=== PATIENT | male | born 1945 | race Caucasian/White ===

== ENCOUNTER 2017-09-12 01:11 | Inpatient (IN) | payer MEDICARE, MEDICAID ==
[2017-09-12 03:35] LABS: #Eosinphils 0.1 thou/uL (0.0-0.7); #Lymphocytes 0.9 thou/uL (1.20-3.40); #Monocytes 0.8 thou/uL (0.11-0.59); #Neutrophils 5.8 thou/uL (1.40-6.50); %Basophils 0.3 % (0.0-1.0); %Eosinophils 1.3 % (0.0-10.0); %Lymphocytes 11.6 % (21.0-51.0); %Monocytes 11.1 % (0.0-10.0); Hematocrit 33.8 % (42.0-52.0); Mean Platelet Volume 7.5 fL (7.4-10.4); Red Blood Cell (RBC) Count 3.65 mill/uL (4.70-6.10); White Blood Cell (WBC) Count 7.6 thou/uL (4.8-10.8)
[2017-09-12 03:57] LABS: ALT (SGPT) 23 U/L (8-55); AST (SGOT) 19 U/L (5-34); Alkaline Phosphatase 67 U/L (40-150); Anion Gap 10 mmol/L (10-20); BUN (Urea Nitrogen) 17 mg/dL (8.4-25.7); Calc. Creatinine Clearance 0 mL/min (70-130); Calcium 8.3 mg/dL (7.8-10.44); Carbon Dioxide 22 mmol/L (23-31); Chloride 109 mmol/L (98-107); Estimated GFR-MDRD Greater than 90; Globulin 3.3 g/dL (2.4-3.5); Protein, Total 5.9 g/dL (5.8-8.1)
[2017-09-12] MEDS ORDERED: Lactated Ringer's 1,000 ML IV SCH (04:40)
[2017-09-12] MEDS ORDERED: Ondansetron ODT 4 MG TAB SL PRN (04:40)
[2017-09-12] MEDS ORDERED: Acetaminophen 325 MG TAB PO PRN (04:40)
[2017-09-12] MEDS ORDERED: Ondansetron HCl/PF 4 MG/2 ML Vial IVP PRN ×2 (04:40→11:03)
[2017-09-12 04:47] VITALS: BMI 21.7
--- NOTE | 2017-09-12 06:38 | PDOC.EVN ---
Event Note - Event Note Event Note: [id number] H&P dictated 1. Hematuria 2. BPH 3. GERD 4. H/O MRDD Plan:see orders
[2017-09-12] MEDS ORDERED: Iothalamate Meglumine 60% 50 ML VIAL FS ONE (07:03)
[2017-09-12] MEDS ORDERED: Fentanyl 100 MCG/2 ML VIAL ONE ×2 (07:50)
[2017-09-12] MEDS ORDERED: Levofloxacin 500 mg/D5W 100 ml Premix Bag ONE (07:54)
[2017-09-12] MEDS ORDERED: Midazolam HCl 2 mg/2 ml Vial ONE (08:02)
--- NOTE | 2017-09-12 08:41 | HP ---
DATE OF ADMISSION: 09/12/2017 CHIEF COMPLAINT: Blood in the urine. HISTORY OF PRESENT ILLNESS: Patient is 72 years old female with past medical history of MRDD, BPH, G ERD, vitamin D deficiency, cataracts, now brought to the ER because of blood in the urine. Patient l [place] in a shelter. Patient is a poor historian and is not able to give much history. Patient kep t saying yes, no, no for everything. According to the nurse, the patient lives in a shelter and t he patient started having blood in the urine for the past 2-3 days, so patient was brought to the ER. Denies any fever, denies any chills, denies any cough, denies any sputum production. PAST MEDICAL HISTORY: As per HPI. PAST SURGICAL HISTORY: Unavailable. Nurse at shelter did not send any records. ALLERGIES: No known drug allergies. MEDICATIONS: Reviewed. FAMILY HISTORY: Unavailable as there are no family members. REVIEW OF SYSTEMS: None available from the patient due to the patient is a poor historian. PHYSICAL EXAMINATION: VITAL SIGNS: Blood pressure 126/79, pulse ox 95%, heart rate 111, temperature 98.2. GENERAL: This patient is sleeping, but arousable, not oriented. NECK: Supple, no JVD. HEENT: Anterior naris patent. Oral cavity, poor dentition. CARDIOVASCULAR SYSTEM: S1, S2 present, tachy. No murmurs, no rubs, no gallops. RESPIRATORY SYSTEM: No wheezing, no rhonchi. Breath sounds present bilaterally. GASTROINTESTINAL: Abdomen is soft, nontender, no guarding, no organomegaly. MUSCULOSKELETAL: No edema. CRANIAL NERVE SYSTEM: Awake, follows some commands, but not oriented. PSYCHIATRIC: Mood calm at this time. LABORATORY DATA: At the time of H&P performed, white count 7.6, hemoglobin 10.9, platelet count is 1 46. The sodium showed 137, potassium 3.9, chloride 109, CO2 of 22, BUN 17, creatinine 0.78. UA pend ing. ASSESSMENT AND PLAN: The patient is a 72-year-old male: 1. Hematuria. Plan is to check a urinalysis at this time. Plan to consult Urology to evaluate the patient and we will monitor the patient closely. Plan to check renal ultrasound also. 2. History of gastroesophageal reflux disease. Continue proton pump inhibitor. 3. History of benign prostatic hypertrophy. Continue home medications. 4. History of mentally retarded/developmentally disabled, stable at this time. Continue ann joseph was discussed in detail with the patient and the nurse also.
--- NOTE | 2017-09-12 08:56 | RAD ---
PORTABLE CHEST: HISTORY: Mental status change. The patient is slightly rotated. The lungs are clear. No evidence of infiltrate or vascular congest ion. Heart and mediastinum appear unremarkable. Apical pleural thickening is noted. Nodular densit y overlying the left mid lung is indeterminate. This may represent a calcified granuloma or a vascul ar marking. Recommend followup PA and lateral views of chest for evaluation. IMPRESSION: Suboptimal exam due to rotated position. No acute infiltrate or vascular congestion. Indeterminate nodular density in the left mid lung. Recommend followup PA and lateral views of the chest electivel y. CODE T POS: MICHELLE
[2017-09-12] MEDS ORDERED: Phenylephrine 10 MG/NS 250 ML 250 ML ONE (10:12)
[2017-09-12 10:32] LABS: Hematocrit 29.3 % (42.0-52.0)
[2017-09-12] MEDS ORDERED: Promethazine HCl 25 MG/ML VIAL SLOW IVP PRN (11:03)
[2017-09-12] MEDS ORDERED: Promethazine HCl 25 MG/ML VIAL IM PRN (11:03)
[2017-09-12] MEDS ORDERED: Mag-Al 1200 mg/1200 mg/30 ML UDCUP PO PRN (11:08)
[2017-09-12] MEDS ORDERED: hydrALAZINE 20 MG/ML VIAL SLOW IVP PRN ×2 (11:08)
[2017-09-12] MEDS ORDERED: Bisacodyl 10 MG SUPP PR PRN (11:08)
[2017-09-12] MEDS ORDERED: Betamethasone 0.1% Cream 15 GM TUBE TOP PRN (11:13)
[2017-09-12 11:46] LABS: Hematocrit 33.7 % (42.0-52.0); Mean Platelet Volume 7.3 fL (7.4-10.4); Red Blood Cell (RBC) Count 3.59 mill/uL (4.70-6.10); White Blood Cell (WBC) Count 4.3 thou/uL (4.8-10.8)
[2017-09-12 11:59] LABS: Anion Gap 9 mmol/L (10-20); BUN (Urea Nitrogen) 14 mg/dL (8.4-25.7); Calc. Creatinine Clearance 78 mL/min (70-130); Calcium 8.1 mg/dL (7.8-10.44); Carbon Dioxide 23 mmol/L (23-31); Chloride 108 mmol/L (98-107); Estimated GFR-MDRD Greater than 90
[2017-09-12] MEDS ORDERED: COLLOIDAL OATMEAL TOP PRN (12:15)
[2017-09-12] MEDS ORDERED: MENTHOL TOP PRN (12:15)
--- NOTE | 2017-09-12 12:51 | RAD ---
RETROGRADE PYELOGRMA: Five fluoroscopic images from the OR presented. HISTORY: Intraoperative imaging during left ureteral stent placement. FINDINGS/IMPRESSION: These images show partial opacification of left collecting structures with mild dilatation of visuali zed ureter and upper collecting structures. Wire and catheter placed into the upper collecting struc tures. The final images demonstrate placement of a left ureteral stent. POS: MICHELLE
[2017-09-12] MEDS: predniSONE 5 MG TAB PO SCH (12:56)
[2017-09-12] MEDS: Finasteride 5 MG TAB PO SCH (12:56)
[2017-09-12] MEDS: Tamsulosin HCl 0.4 MG CAP PO SCH (12:56)
[2017-09-12] MEDS: Sodium Chloride 0.9% 1,000 ML IV SCH ×2 (12:57→18:12)
--- NOTE | 2017-09-12 13:03 | PDOC.EVN ---
Event Note - Event Note Event Note: Chart reviewed. Pt seen Discussed with pt's brother. Pt is DNR. Pt's brother agreeable to physical and chemical restraints PRN.
[2017-09-12] MEDS ORDERED: Lidocaine 1% PF 5 ML VIAL ONE (13:50)
[2017-09-12] MEDS ORDERED: PHENYLEPHRINE-NS 100 MCG/ML 10 ML SYRINGE ONE (13:50)
[2017-09-12] MEDS ORDERED: Ondansetron HCl/PF 4 MG/2 ML Vial ONE (13:50)
[2017-09-12] MEDS ORDERED: Propofol 200 MG/20 ML VIAL ONE (13:50)
[2017-09-12] MEDS ORDERED: ePHEDrine/0.9% NaCl/PF SYRINGE 50 mg/10 ml ONE (13:50)
[2017-09-12] MEDS ORDERED: Glycopyrrolate 0.2 MG/ML 5 ML SYRINGE ONE (13:50)
--- NOTE | 2017-09-12 15:42 | OP ---
DATE OF PROCEDURE: 09/12/2017 PREOPERATIVE DIAGNOSES: 1. A 72-year-old male with history of gross hematuria. 2. Severe left hydroureteronephrosis with megaureter. 3. Left exophytic solid appearing 2.5 cm lower pole renal mass. 4. Possible left upper to lower pole hyperattenuating mass versus stone versus debris. POSTOPERATIVE DIAGNOSES: 1. A 72-year-old male with history of gross hematuria. 2. Severe left hydroureteronephrosis with megaureter. 3. Left exophytic solid appearing 2.5 cm lower pole renal mass. 4. Possible left upper to lower pole hyper attenuating mass versus stone versus debris. PROCEDURES: Cystoscopy, left retrograde, 20 [place]ican three-way Waters catheter, 30 mL to CBI, left ureteroscopy, pyeloscopy proximal ureteral biopsy, 6 x 30 double-J ureteral stent placement with distal tail in situ, meatal calibration dilatation with Russ sounds dilated from 22-30 Costa Rican. SURGEON: Tena Bernal D.O. ANESTHESIA: General. COMPLICATIONS: None apparent. DISPOSITION: To the recovery room in stable condition. SPECIMENS: Multiple left ureteral renal clot, left prox ureteral biopsy. EBL: Less than 50 mL. IV FLUIDS: 1600. INTRAOPERATIVE FINDINGS: 1. Nonobstructing bulbar stricture 16-18 Costa Rican caliber. 2. Mild BPH component. 3. Diffuse cellulae, diffuse diverticular formation, bilateral Hutch diverticulum, no evidence of gross bladder mass or stone. 4. Severe left hydroureteronephrosis/megaureter with tortuosity. 5. Multiple left ureteral clots, questionable left proximal L3 ureteral mass versus inflammatory changes. 6. Left pyeloscopy demonstrates no mid to upper pole renal lesion, left lower pole was difficult to visualize due to clot debris 7 VAN under anesthesia grossly unremarkable with no nodularity INDICATIONS FOR THE PROCEDURE AND HISTORY: Mr. House is a 72-year-old male who was transferred from [facility] as he presented twice in one evening due to gross hematuria with decreased hemoglobin from 12- to 10. He was initially diagnosed with hemorrhagic cystitis and discharged with Keflex and provided Rocephin. He presented back due to persistent gross hematuria and CT of the abdomen and pelvis without contrast was obtained at [facility] demonstrating severe left hydroureteronephrosis, with megaureter extending down to the level of the UVJ, the bladder itself was difficult to study due to orthopedic hardware due to streak artifact. There may be some debris or hypoattenuating mass versus stone in the upper to mid pole, there is a heterogenous left lateral lower pole 2.5 x 2 cm, 50 Hounsfield unit inner lesion with multiple enlarged lymph nodes adjacent to the dilated ureter. The bladder demonstrated circumferential bladder thickening. He does not appear to be in significant retention. Given his presentation, he was taken to the operating room for diagnostic evaluation. Due to his mental capacity as he is mentally impaired, born with mental retardation since , I did speak with his brother who is the POA regarding indications for diagnostic evaluation. Risks and complications and indications for the procedure were reviewed with the family and they desired to proceed. DESCRIPTION OF THE PROCEDURE: After an informed consent is signed, the patient is taken to the operating room, placed in a dorsal lithotomy position with the genital area prepped and draped in the usual surgical sterile fashion. A digital rectal exam was performed under general anesthesia demonstrating prostate approximately 20-30 grams with no discrete nodularity. The broad- spectrum antibiotics were provided. Bilateral KIRK hose and SCDs were placed. A 21-Costa Rican cystoscope was utilized for cystoscopy which demonstrated a nonobstructing wide caliber bulbar stricture, 16-18 [place]ican caliber. The prostatic urethra itself demonstrated mild BPH component with no significant outlet obstruction. Bladder was entered. Visualization was very poor as there was significant amount of hematuria component. There were not significant clots per se, but visualization was very poor due to oozing from the left ureteral orifice which we were eventually able to identify. As I was unable to visualize the bladder clearly, I did transition to a resectoscope 26 gyrus. Using a visual obturator, this was passed. His meatus need to be dilated from 22-30 Costa Rican and subsequently the 26-Costa Rican resectoscope was passed without difficulty. This was able to be passed through the urethral stricture without any issues. Upon entering the resectoscope, we transitioned to the suction and gyrus loop. With the suction in place, we were able to visualize the bladder more clearly. There were no suspicious lesions for malignancy within the bladder. He does have diffuse cellulae diverticular formation and bilateral Hutch diverticulum. I did not see any obvious bladder lesions concerning for malignancy. However, the cystoscopy is somewhat suboptimal given that he is actively bleeding from the left UO. The bilateral UOs are normal in caliber. There is bilateral adjacent Hutch diverticulum. As we identified the source of bleeding from the left collecting system, the gyrus resectoscope was then subsequently removed. We passed a 21-Costa Rican cystoscope and an open-ended catheter was passed into the left ureter and a retrograde pyelogram was performed. There was no obvious filling defect in the left distal ureter; however, he had megaureter. Given that he has significant tortuosity, opacification of the proximal ureter was very challenging. In little increments , we were able to negotiate a 0.35 angled Glidewire and able to access the left upper pole collecting system confirmed on retrograde pyelography. With the wire in situ, I did pass the rigid ureteroscope, there is multiple clot debris in the distal ureter which was removed and I do not see any obvious left distal ureteral lesion. At the level of the L3 ureter, I was unable to pass the rigid ureteroscope due to significant redundant tortuous ureter, due to redundant mucosa in J hooking effect of the ureter. There were intermittent areas of clots along the course of the ureter. As such, the ureteroscopy was somewhat suboptimal, but I did not see any obvious distal ureteral mass. At this time, flexible ureteroscopy was performed. A 10 [place]ican dual-lumen access sheath was passed over the working safety wire and a second safety wire, a 0.35 Super Stiff was passed in the left upper pole. As he has megaureter, I was easily able to pass a 13/15F 46 cm navigator without any issues to the level of the renal pelvis. Upon passing the navigator to the level of the renal pelvis UPJ, moderate amount of old venous blood was evacuated from the renal pelvis. A flexible ureteroscope was then advanced. We had to irrigate his calyceal collecting system quite a bit to visualize. I was able to evaluate upper and midpole collecting system with no obvious caliceal mass. The left lower pole was somewhat difficult to visualize as there was an adherent clot which we had difficulty evacuating as biopsy forceps nor 0 tip nitinol basket could grasp it entirely. We then surveyed the proximal ureter, there was further clots along the course of the ureter; therefore, hindering visual assessment. I did biopsy the proximal and mid ureter at the level of the L3 as there appeared to be some inflammatory changes here. Using front loading the biopsy samples were obtained. Again, the ureteroscopy was very challenging as it was quite redundant ureteral mucosa, along with intermittent areas of clot adherence, which was difficult to evacuate it entirely. As I was able to obtain some specimen, a 6 x 30 double-J ureteral stent was passed without difficulty and proper placement. At this time, we then reinspected the bladder which demonstrated no evidence of active bleeding component from the bladder itself. A 20 Costa Rican 30 mL catheter was passed without any issues and attached to CBI on low rate with pink to transparent red output. He tolerated the procedure well and is transported to the recovery room in stable condition. We will follow along regarding pathology and monitor degree of hematuria. My plan is to proceed with restaging CT hematuria protocol to further delineate and await pathology. Due to his mental status, he will require a 24-hour sitter. BONITA
--- NOTE | 2017-09-12 16:03 | CON ---
DATE OF CONSULTATION: 09/12/2017 REASON FOR CONSULT: Gross hematuria, left hydronephrosis. HISTORY OF PRESENT ILLNESS: Mr. House is a 72-year-old male with history of developmental delay since , lives in a nursing home, transfer from [facility] Room for higher level of care. He presented initially earlier Wednesday with presumed diagnosis of hemorrhagic cystitis, treated with Rocephin, outpatient Keflex. He presented due to recurrent hematuria. His hemoglobin initially was 12, subsequently 10. Urologic consultation was obtained over the phone and I informed the patient be transferred due to decreased hemoglobin and CT demonstrating multiple abnormalities: demonstrating severe left hydronephrosis to the level of the UVJ in which the bladder mass cannot be ruled out. There is also an incidental complex renal mass concerning for renal cell carcinoma, and hyperattenuating debris in the dependent portion of the left upper and lower pole renal collecting system. The right kidney is grossly unremarkable. He voids in his diaper, there is no significant distention of the bladder on CT scan. His labs repeated and currently stable and his blood pressure is stable. Urinalysis culture obtained from [facility], culture pending. Renal function stable. History is obtained per chart as the patient cannot provide a subjective history. Sitter is at bedside due to his mental capacity and combativeness. If you approached the patient he is physically combative and attempts to strike nursing staff. PAST MEDICAL HISTORY: GERD, vitamin D deficiency, cataracts, BPH, developmental delay since . PAST SURGICAL HISTORY: 1. Open cholecystectomy. 2. Bilateral hip surgery. PSYCHIATRIC HISTORY: Unknown. SOCIAL HISTORY: Upon discussing with his POA, older brother, Alberto House( phone number [phone]), no smoking history. ALLERGIES: No known drug allergies. HOME MEDICATIONS: Include calcium, finasteride, loratadine, vitamin D, potassium, tamsulosin, prednisone, Kenalog, and trazodone. PHYSICAL EXAMINATION: VITAL SIGNS: Stable at 99.4, 105, 22, 96, 118/71. GENERAL: Patient is currently sleeping comfortably; however, when arouse, he is grossly physically and verbally abusive, requiring 2 nurses assist to examine his abdomen; however, physical exam is limited as he will not allow me to do extensive physical exam except briefly visualize his abdomen and genital area. ABDOMEN: Appears to be nondistended. There is an open cholecystectomy in the upper quadrant. There is no gross suprapubic tenderness. GENITOURINARY EXAM: Uncircumcised, diaper is saturated with hematuria. No significant clots are appreciated per se. Testes are descended with no evidence of intratesticular mass, unable to perform VAN due to his mental status. EXTREMITIES: There is no gross cyanosis, clubbing, or edema. PERTINENT IMAGING AND LABORATORY DATA: White count 7, hemoglobin 10.9. Creatinine is 0.78. Platelet is 146. Sodium 137, potassium 3.9. Urinalysis from [facility] reviewed demonstrating red cloudy urine, packed RBCs, greater than 50 wbcs, occasional bacteria, no epithelial, negative nitrites. Culture pending. CT of the abdomen and pelvis stone protocol, which I reviewed myself through [facility]. 09/11/2017, CT demonstrates right kidney is unremarkable, 17 mm right renal cyst. Left kidney demonstrates diffuse renal cortical atrophy, there is marked hydronephrosis with significant megaureter extending to the level of the UVJ. There is a streak artifact from his hip replacement. Therefore, a bladder assessment is suboptimal. The left upper and lower pole collecting system demonstrates hyperattenuating mass-like debris, with layering effect measuring approximately 2.2 cm, possibility includes stone debris, a urothelial mass. There is heterogenous exophytic left lateral renal mass measuring 2.5 x 2.0 cm, 50 Hounsfield unit on noncontrast. There are multiple enlarged lymph nodes adjacent to the dilated left ureter along the retroperitoneum in the pelvis, circumferential bladder wall thickening is noted. Mild BPH component noticed. Bilateral hip hardware is noted. IMPRESSION/PLAN: Mr. House is a 72-year-old male with mental developmental delay since , who lives in a nursing home with past medical history of benign prostatic hypertrophy, gastroesophageal reflux disease, presents with urologic issues of. 1. Gross hematuria for the last [address] demonstrating abnormalities as above with severe left hydroureteronephrosis and megaureter. 2. Left complex lower pole renal mass concerning for renal cell carcinoma. 3. CT demonstrates changes concerning for possible urothelial carcinoma, possible transitional cell carcinoma of the bladder. I did contact his brother, who is Alberto Lacy, his power of compliance attorney, older brother. Informed family regarding his clinical status and picture and indications for diagnostic cystoscopy, transurethral resection of bladder tumor , retrograde stent placement if possible. Verbal consent obtained. He is typed and crossed for 4 units, n.p.o. for OR. Christopher nutrition partner to the OR. BONITA
[2017-09-12] MEDS: traZODone HCl 50 MG TAB PO SCH (21:25)
[2017-09-12] MEDS: Docusate 100 MG CAP PO SCH (21:26)
[2017-09-12] MEDS: Calcium Carbonate 600 MG TAB PO SCH (21:26)
[2017-09-12] MEDS: [UNRECOGNIZED DRUG - SUPPLY] FS SCH (21:27)
[2017-09-12] MEDS: TROSPIUM 20 MG TABLET PO SCH (22:29)
[2017-09-12] MEDS: Latanoprost 0.005% Ophth Soln 2.5 ml Bottle EA EYE SCH (22:30)
[2017-09-12] MEDS: Chlorhexidine Gluconate 15 ML UDCUP SSP SCH (22:30)
[2017-09-13 05:27] LABS: #Eosinphils 0.1 thou/uL (0.0-0.7); #Lymphocytes 0.6 thou/uL (1.20-3.40); #Monocytes 0.4 thou/uL (0.11-0.59); #Neutrophils 2.4 thou/uL (1.40-6.50); %Basophils 0.5 % (0.0-1.0); %Eosinophils 3.7 % (0.0-10.0); %Lymphocytes 17.7 % (21.0-51.0); %Monocytes 10.3 % (0.0-10.0); Mean Platelet Volume 7.6 fL (7.4-10.4); White Blood Cell (WBC) Count 3.5 thou/uL (4.8-10.8)
[2017-09-13 05:43] LABS: Anion Gap 7 mmol/L (10-20); BUN (Urea Nitrogen) 10 mg/dL (8.4-25.7); Calc. Creatinine Clearance 81 mL/min (70-130); Calcium 7.7 mg/dL (7.8-10.44); Carbon Dioxide 23 mmol/L (23-31); Chloride 110 mmol/L (98-107); Estimated GFR-MDRD Greater than 90
[2017-09-13] MEDS: Sodium Chloride 0.9% 1,000 ML IV SCH ×3 (06:21→23:05)
--- NOTE | 2017-09-13 07:59 | PRG ---
DATE OF SERVICE: 09/13/2017 SUBJECTIVE: The patient is resting comfortably. OBJECTIVE: VITAL SIGNS: Stable at 98.4, 107, 16, 92, blood pressure variable from 118 to 96 systolic, diastolic 71 to 59. ABDOMEN: Soft, nontender, nondistended. CBI is going at a minimal rate with clear urine output. PERTINENT LABORATORY DATA: White count is 3.5, hemoglobin 9.1, platelet 117. BUN 10, creatinine 0.72. IMAGING: Repeat CT final report is pending thus far. IMPRESSION AND PLAN: Mr. House is a 72-year-old male who presented with severe left hydroureteronephrosis, left megaureter, left exophytic renal mass, gross hematuria. He is postop day #1 status post left retrograde stent, ureteroscopy , pyeloscopy, left ureteral biopsy. His pathology is pending, will review CT restaging with radiologist. We will continue current management for now. We will need to monitor his H&H, platelets slowly decreasing, will need to be monitored with daily CBCs. Continue bedside sitter due to his mental capacity. Cardiology consultation for clearance for likely nephrectomy pending. As his urine output is relatively clear on low rate CBI, we'll monitor urine with CBI held. [facility]
[2017-09-13] MEDS: predniSONE 5 MG TAB PO SCH (09:14)
[2017-09-13] MEDS: Tamsulosin HCl 0.4 MG CAP PO SCH (09:14)
[2017-09-13] MEDS: Calcium Carbonate 600 MG TAB PO SCH ×2 (09:14→21:39)
[2017-09-13] MEDS: Docusate 100 MG CAP PO SCH ×2 (09:14→21:40)
[2017-09-13] MEDS: Potassium Chloride 10 MEQ TAB PO SCH (09:14)
[2017-09-13] MEDS: Loratadine 10 MG TAB PO SCH (09:14)
[2017-09-13] MEDS: Finasteride 5 MG TAB PO SCH (09:14)
--- NOTE | 2017-09-13 09:29 | CT ---
PRELIMINARY REPORT/[facility]/EMERGENCY AFTER HOURS PROCEDURE: EXAM: CT Abdomen and Pelvis Without and With Intravenous Contrast CLINICAL HISTORY: 72 years old, male; Condition or disease; Other: Hematuria; Patient HX: Left hydro, indeterminate lp renal mass, hematuria. *pt is poor historian; Additional info: this is a renal mass/hematuria dariela col TECHNIQUE: Axial computed tomography images of the abdomen and pelvis without and with intravenous contrast. Coronal and sagittal reformatted images were created and reviewed. CONTRAST: 95 mL of isovue 370 administered intravenously. COMPARISON: No relevant prior studies available. FINDINGS: Lower thorax: Bibasilar dependent atelectasis. Minimal right and trace left pleural effusions. Small pericardial effusion. ABDOMEN: Liver: Small low attenuation lesion in hepatic segment 3. Otherwise unremarkable. Gallbladder and bile ducts: Cholecystectomy. Pancreas: Unremarkable. Spleen: Normal. Adrenals: Normal. Kidneys and ureters: 2 cm low density lesion in the upper pole of the right kidney likely representin g a cyst with pseudo-enhancement. 2.3 cm exophytic lesion at the lower pole of the left kidney pre/po st/delayed density measurements of 45/75/65 HU Left ureteral stent which appears to terminate within an interpolar calyx with cortical scarring/calyceal diverticulum and within the urinary bladder dista lly. No renal or ureteral stone appreciated. Thickened left ureter with urothelial enhancement about the left renal collecting system, mild caliectasis, and periureteral and perinephric fat stranding. B ubble of gas in the proximal left ureter. Slightly delayed nephrogram and excretion on the left. Hete rogeneous dense material apparently within left upper pole calyces precontrast with irregular filling defect surrounded by dependent contrast on the delayed phase. Stomach and bowel: Unremarkable. No obstruction. Appendix: No findings to suggest acute appendicitis. PELVIS: Bladder: Decompressed by a Waters catheter. Stranding around the urinary bladder margins. Reproductive: Unremarkable. ABDOMEN and PELVIS: Intraperitoneal space: No free air. No significant fluid collection. Bones/joints: Orthopedic fixation of the right hip and total left arthroplasty with associated streak artifact. Soft tissues: Unremarkable. Vasculature: Unremarkable. Lymph nodes: 1 cm upper left periaortic lymph node. IMPRESSION: 1. Exophytic left renal lesion with density measurements suggesting enhancement and a solid lesion. D ensity within left upper pole calyces precontrast with excretory phase filling defect may represent b lood products or proteinaceous debris. 2. Left ureteral stent. Decompressed urinary bladder with perivesicular fat stranding. Diffuse thicke carla of the left ureter with urothelial thickening and enhancement about the left renal collecting sy stem and associated fat stranding suggestive of infection. Mild left hydronephrosis. Some gas within the proximal left ureter may be related to that in the bladder. Thank you for allowing us to participate in the care of your patient. Dictated and Authenticated by: Kush Eric MD 09/13/2017 6:51 AM Central Time ([place] & [place]) FINAL REPORT EMERGENCY AFTER HOURS CT ABDOMEN AND PELVIS WITH AND WITHOUT IV CONTRAST: Date: 09/13/17 Time: 0534 hours HISTORY: Hematuria. Hydronephrosis. Flank pain. FINDINGS: No comparison. The findings agree with the preliminary report by Mary. Left ureteral stent is in plac e with the proximal pigtail protruding into a willow at the lateral aspect of superior pole of left ki dney. The exophytic hyperdense lesion at the posterior aspect of the left kidney shows objective enha ncement, although artifact could result in some of the Hounsfield elevation measurements. MRI of the kidneys could be used for better characterization of the lesion if needed. POS: MICHELLE
--- NOTE | 2017-09-13 09:52 | CON ---
DATE OF CONSULTATION: 09/13/2017 HISTORY: Fabien House is a 72-year-old white male with mental retardation who lives in a custodial and was admitted with hematuria. He is unable to give any history. He does say at times that he would have chest pain lasting approximately 1 hour, but he is unable to give me any other specifics. He does have a history of GERD and he is on a proton pump inhibitor. He did undergo cystoscopy and was found to have severe left hydroureteronephrosis with megaureter and a lower pole renal mass. There is a concern that he may need to undergo nephrectomy. PAST MEDICAL HISTORY: Mental retardation, developmental delay, BPH, GERD, cataracts and vitamin D deficiency. MEDICATIONS: Calcium carbonate 600 b.i.d., vitamin D3 1000 units daily, Proscar 5 mg daily, Claritin 10 mg daily, KCl 10 mEq daily, prednisone 10 mg daily, Flomax 0.4 daily, and trazodone 50 at bedtime. ALLERGIES: None. OPERATIONS: Unknown. SOCIAL HISTORY: Unobtainable. FAMILY HISTORY: Unobtainable. REVIEW OF SYSTEMS: Unobtainable. PHYSICAL EXAMINATION: VITAL SIGNS: Blood pressure 108/66, pulse 92. HEENT: PERRL. NECK: Supple. CHEST: Clear. CARDIAC: S1 and S2 are normal, without any S3, S4 or murmurs. ABDOMEN: Normal bowel sounds, without tenderness or organomegaly. EXTREMITIES: Revealed no clubbing, cyanosis or edema. NEUROLOGIC: Patient follows commands, but is not oriented. He moves all extremities. SKIN: Warm and dry. IMAGING AND LABORATORY DATA: EKG reveals sinus tachycardia with rate of 114 per minute, right bundle branch block, possible old inferior myocardial infarction. Hemoglobin 9.1 and hematocrit 28.0. White count 3,500, platelets 178,000, sodium 137, potassium 3.4, chloride 110, carbon dioxide 23, BUN 10, creatinine 0.72. IMPRESSION: 1. Hematuria with finding of left hydroureteronephrosis and left kidney mass. 2. Mental retardation, developmental delay. 3. Gastroesophageal reflux disease. 4. Benign prostatic hypertrophy. PLAN: This certainly represents a difficult situation in terms of trying to historically understand if he has symptoms of cardiac disease. However, with ongoing bleeding, he is not a candidate for any type of cardiac intervention and measures needed to be taken to eliminate his blood loss. I feel that the risk of proceeding with surgery if required to stop his bleeding would be much less than proceeding with any type of cardiac evaluation, especially with ongoing bleeding. Echocardiogram will be performed to aide in management. However, if nephrectomy as needed, then I feel this is going to be our best course going forward. BONITA
[2017-09-13] MEDS: TROSPIUM 20 MG TABLET PO SCH ×2 (13:37→21:40)
[2017-09-13] MEDS: Chlorhexidine Gluconate 15 ML UDCUP SSP SCH ×2 (13:38→23:05)
--- NOTE | 2017-09-13 14:34 | PDOC.PN ---
- Subjective Encounter Start Date: 09/13/17 Encounter Start Time: 08:20 Pt seen for followup re: hematuria. Pt mumbling, unable to give history. Could not complete ROS. - Objective Resuscitation Status: Resuscitation Status DNR:Do Not Resuscitate Vital Signs & Weight: Vital Signs (12 hours) Temp Pulse Resp BP Pulse Ox 09/13/17 11:55 98.2 F 89 19 100/65 96 09/13/17 08:00 97.8 F 92 16 09/13/17 07:40 97.8 F 92 16 108/66 96 09/13/17 04:50 98.4 F 107 H 16 96/59 L 92 L Weight Weight 134 lb 11.2 oz I&O: 09/12/17 09/13/17 09/14/17 06:59 06:59 06:59 Intake Total 125 1200 Output Total 1050 Balance 125 150 Result Diagrams: 09/13/17 04:39 09/13/17 04:39 Additional Labs: Accuchecks 09/13/17 09/13/17 09/12/17 11:39 06:07 21:12 POC Glucose 114 H 88 140 H Phys Exam - Physical Examination Constitutional: NAD HEENT: moist MMs Respiratory: clear to auscultation bilateral Cardiovascular: RRR Gastrointestinal: soft Neurological: moves all 4 limbs Psychiatric: normal affect Skin: no rash Dx/Plan (1) Hematuria Code(s): R31.9 - HEMATURIA, UNSPECIFIED Status: Acute (2) Renal mass Code(s): N28.89 - OTHER SPECIFIED DISORDERS OF KIDNEY AND URETER Status: Acute (3) Hypokalemia Code(s): E87.6 - HYPOKALEMIA Status: Acute (4) GERD (gastroesophageal reflux disease) Code(s): K21.9 - GASTRO-ESOPHAGEAL REFLUX DISEASE WITHOUT ESOPHAGITIS Status: Chronic (5) BPH (benign prostatic hyperplasia) Code(s): N40.0 - BENIGN PROSTATIC HYPERPLASIA WITHOUT LOWER URINRY TRACT SYMP Status: Chronic - Plan continue antibiotics, DVT proph w/SCDs * . Plan for surgery noted. Appreciate cardiology input. Haldol PRN. No anticoagulants. Replace potassium. Review of Systems - Medications/Allergies Allergies/Adverse Reactions: Allergies Allergy/AdvReac Type Severity Reaction Status Date / Time No Known Allergies Allergy Verified 09/12/17 05:26 Medications: Current Medications Acetaminophen (Tylenol) 650 mg PO Q4H PRN PRN Reason: Headache/Fever or Pain Stop: 09/15/17 16:35 Al Hydroxide/Mg Hydroxide (Maalox) 30 ml PO Q4H PRN PRN Reason: Indigestion Betamethasone Valerate (Valisone 0.1% Cream) 0 gm TOP DAILYPRN PRN PRN Reason: Itching Bisacodyl (Dulcolax) 10 mg [place] DAILYPRN PRN PRN Reason: Constipation Calcium Carbonate (Caltrate) 600 mg PO BID [facility] Last Admin: 09/13/17 09:14 Dose: 600 mg Chlorhexidine Gluconate (Chlorhexidine Gluconate) 15 ml SSP BID [facility] Last Admin: 09/13/17 13:38 Dose: Not Given Cholecalciferol (Vitamin D3) 1,000 units PO DAILY [facility] Last Admin: 09/13/17 09:14 Dose: 1,000 units Docusate Sodium (Colace) 100 mg PO BID [facility] Last Admin: 09/13/17 09:14 Dose: 100 mg Finasteride (Proscar) 5 mg PO DAILY [facility] Last Admin: 09/13/17 09:14 Dose: 5 mg Haloperidol Lactate (Haldol) 5 mg IM Q8H PRN PRN Reason: Agitation Hydralazine HCl (Apresoline) 20 mg SLOW IVP Q4H PRN PRN Reason: SBP greater than 160/100 Levofloxacin 500 mg/ Device 100 mls @ 100 mls/hr IVPB 0800 [facility] Last Admin: 09/13/17 09:12 Dose: 100 mls Sodium Chloride (Normal Saline 0.9%) 1,000 mls @ 100 mls/hr IV .Q10H [facility] Last Admin: 09/13/17 06:21 Dose: 1,000 mls Latanoprost (Xalatan 0.005% Ophth Soln) 1 drop EA EYE HS [facility] Last Admin: 09/12/17 22:30 Dose: 1 drop Loratadine (Claritin) 10 mg PO DAILY [facility] Last Admin: 09/13/17 09:14 Dose: 10 mg Mirabegron (Myrbetriq Er) 50 mg PO DAILY [facility] Last Admin: 09/13/17 09:14 Dose: 50 mg Ondansetron HCl (Zofran) 4 mg IVP Q6H PRN PRN Reason: Nausea/Vomiting Stop: 09/17/17 16:35 Eyelid Cleanser Comb No.7 [Ocusoft Lid Scrub Kit] 1 Pack 0 each FS HS [facility] Last Admin: 09/12/17 21:27 Dose: 1 each Menthol/Colloidal Oatmeal [Eucerin Calm Itch-Relief Treatment] 0 each TOP BIDPRN PRN PRN Reason: Itching Potassium Chloride (Klor-Con 10) 10 meq PO QAM-WM [facility] Last Admin: 09/13/17 09:14 Dose: 10 meq Prednisone (Prednisone) 10 mg PO DAILY [facility] Last Admin: 09/13/17 09:14 Dose: 10 mg Sodium Chloride (Flush - Normal Saline) 10 ml IVF Q12HR [facility] Last Admin: 09/13/17 09:44 Dose: Not Given Sodium Chloride (Flush - Normal Saline) 10 ml IVF PRN PRN PRN Reason: Saline Flush Tamsulosin HCl (Flomax) 0.4 mg PO DAILY [facility] Last Admin: 09/13/17 09:14 Dose: 0.4 mg Trazodone HCl (Desyrel) 50 mg PO HS [facility] Last Admin: 09/12/17 21:25 Dose: 50 mg Trospium (Trospium Chloride) 20 mg PO BID [facility] Last Admin: 09/13/17 13:37 Dose: Not Given
[2017-09-13] MEDS ORDERED: Potassium Chloride 20 MEQ TAB PO SCH (14:45)
[2017-09-13] MEDS: Latanoprost 0.005% Ophth Soln 2.5 ml Bottle EA EYE SCH (21:40)
[2017-09-13] MEDS: [UNRECOGNIZED DRUG - SUPPLY] FS SCH (21:40)
[2017-09-13] MEDS: traZODone HCl 50 MG TAB PO SCH (21:40)
[2017-09-14 05:35] LABS: Anion Gap 9 mmol/L (10-20); BUN (Urea Nitrogen) 6 mg/dL (8.4-25.7); Calc. Creatinine Clearance 87 mL/min (70-130); Calcium 7.7 mg/dL (7.8-10.44); Carbon Dioxide 19 mmol/L (23-31); Chloride 112 mmol/L (98-107); Estimated GFR-MDRD Greater than 90
[2017-09-14 05:38] LABS: #Eosinphils 0.2 thou/uL (0.0-0.7); #Lymphocytes 0.7 thou/uL (1.20-3.40); #Monocytes 0.4 thou/uL (0.11-0.59); #Neutrophils 3.7 thou/uL (1.40-6.50); %Basophils 0.2 % (0.0-1.0); %Eosinophils 3.9 % (0.0-10.0); %Lymphocytes 13.9 % (21.0-51.0); %Monocytes 7.6 % (0.0-10.0); Hematocrit 29.4 % (42.0-52.0); Red Blood Cell (RBC) Count 3.18 mill/uL (4.70-6.10); White Blood Cell (WBC) Count 4.9 thou/uL (4.8-10.8)
--- NOTE | 2017-09-14 08:30 | PRG ---
DATE OF SERVICE: 09/14/2017 SUBJECTIVE: Sitter at bedside, patient in no acute distress. Appears comfortable. PHYSICAL EXAMINATION: VITAL SIGNS: Stable, afebrile. I's and O's 2500 in, 1625 out, he is positive 500 mL. ABDOMEN: Soft, nontender, nondistended. : CBI has been held since yesterday, with no significant recurrence of gross hematuria, concentrat ed ranjit urine with some sediment noted. LABORATORY DATA: White count 4.9, hemoglobin stable at 9.3, platelet 111, previously 117, BUN 6, cre atinine 0.6. Restaging CT of the abdomen and pelvis with and without IV contrast dated 09/13/2017 demonstrate sign ificant improvement of left hydroureteronephrosis. Left exophytic 2.3 cm lower pole solid enhancing renal mass. Density in the left upper pole, contrast demonstrating possible blood products versus pr oteinaceous debris. Diffuse thickening of the left ureter with stranding suggestive of infection, gas in the left collect ing system as expected due to recent pyeloscopy. IMPRESSION AND PLAN: 1. A 72-year-old male with mental retardation, presented from [facility] with gross hematuria. 2. Severe left hydroureteronephrosis with radha ureter. 3. Diffuse trabeculation, diverticular formation of the bladder. 4. No significant outlet obstruction on cystoscopy except incidental mild benign prostatic hypertrop hy and nonobstructing bulbar stricture. 5. Ureteroscopy pyeloscopy demonstrating multiple ureteral renal blood clots, ureteral biopsy pendin g. 6. 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 The patient's gross hematuria has resolved with normal renal function. Pathology is pending as well as urine culture obtained from [facility]. We will continue to monitor the patient's stat us, I will recheck a UA, C&S. We will obtain cytology from catheter specimen as it was not obtained intraoperatively. Plan is to perform restaging ureteroscopy, pyeloscopy after convalescence from recent surgery as his hematuria has improved. Visualization was very poor due to significant clot debris in the left colle cting system as well as the ureter. The patient's family has been informed regarding possible ureter al TCC and incidental solid renal mass concerning for occult renal cell carcinoma. He will undergo f urther workup for final treatment options to be delineated. Continue Waters catheter for now. It is unclear why his significant trabeculation of the bladder with no significant outlet function. As his hematuria has resolved, pending final urine culture, we will remove Waters catheter likely before dis charge and check postvoid residual. Given his mental capacity, I would prefer patient to be discharg ed without a Waters catheter as there is a risk of traumatic Waters catheter removal. I appreciate Car diology and Hospitalist care.
[2017-09-14] MEDS: Potassium Chloride 10 MEQ TAB PO SCH (09:20)
[2017-09-14] MEDS: Docusate 100 MG CAP PO SCH ×2 (09:20→20:00)
[2017-09-14] MEDS: Tamsulosin HCl 0.4 MG CAP PO SCH (09:20)
[2017-09-14] MEDS: Calcium Carbonate 600 MG TAB PO SCH ×2 (09:20→20:00)
[2017-09-14] MEDS: Loratadine 10 MG TAB PO SCH (09:21)
[2017-09-14] MEDS: Finasteride 5 MG TAB PO SCH (09:21)
[2017-09-14] MEDS: predniSONE 5 MG TAB PO SCH (09:21)
[2017-09-14] MEDS: TROSPIUM 20 MG TABLET PO SCH (09:36)
[2017-09-14] MEDS: Chlorhexidine Gluconate 15 ML UDCUP SSP SCH ×2 (09:36→20:00)
[2017-09-14 10:00] LABS: Bilirubin Negative (Negative); Blood, Urine Large (Negative); Glucose, Urine (Dipstick) Negative (Negative); Ketone, Urine Trace mg/dL (Negative); Nitrite Negative (Negative); Protein, Urine (Dipstick) 100 mg/dL (Neg-Trace); Urobilinogen 0.2 mg/dL (0.2-1.0)
[2017-09-14 10:03] LABS: Bacteria/HPF None Seen HPF (None Seen); Hyaline Casts/LPF 7-10 HYALINE CAST LPF (0-3 Hyaline); RBC/HPF GREATER THAN 50-TNTC HPF (0-3); Squamous Epithelial 0-3 HPF (0-3)
--- NOTE | 2017-09-14 11:36 | CT ---
CT CHEST WITHOUT CONTRAST: HISTORY: Lung nodule on chest x-ray. COMPARISON: None. FINDINGS: There are bilateral clearing pleural effusions, mild to moderate in size. There is compressive atele ctasis in both lung bases. There is some opacity within the lingula, felt to represent atelectasis. Heart size is at the upper limits of normal. No pericardial effusion. Mild peripheral interstitial thickening. The aorta is nonaneurysmal. Heart size is unremarkable. No pericardial effusion. There is gas within the left intrahepatic biliary system. Old buckle fracture of the right anterior fourth and fifth ribs. There are areas of sclerosis of the right posterior fifth rib neck. There is an old buckle fracture of lateral right ninth rib. IMPRESSION: 1. No definite pulmonary nodule seen to correspond to the chest radiograph findings. There is, panda tiffani, atelectasis in the lingula in the left lower lobe. 2. Mild edema. 3. Small to moderate sized pleural effusions. 4. Compressive atelectasis of both lung bases. POS: MICHELLE
[2017-09-14] MEDS ORDERED: Furosemide 40 MG/4 ML VIAL SLOW IVP SCH (12:30)
--- NOTE | 2017-09-14 12:32 | PDOC.PN ---
- Subjective Encounter Start Date: 09/14/17 Encounter Start Time: 12:31 Pt seen for followup re: renal mass. Not verbalizing any complaints. Unable to complete ROS. - Objective Resuscitation Status: Resuscitation Status DNR:Do Not Resuscitate MAR Reviewed: Yes Vital Signs & Weight: Vital Signs (12 hours) Temp Pulse Resp BP Pulse Ox 09/14/17 08:44 98.2 F 97 16 09/14/17 08:00 97.6 F 95 18 100/65 94 L 09/14/17 04:00 98.2 F 97 16 109/69 95 Weight Weight 134 lb 11.2 oz I&O: 09/13/17 09/14/17 09/15/17 06:59 06:59 06:59 Intake Total 1200 2500 Output Total 1050 1625 Balance 150 875 Result Diagrams: 09/14/17 04:35 09/14/17 04:35 Phys Exam - Physical Examination Constitutional: NAD HEENT: moist MMs Neck: supple Respiratory: clear to auscultation bilateral Cardiovascular: RRR Gastrointestinal: soft Musculoskeletal: pulses present Neurological: moves all 4 limbs Psychiatric: normal affect Dx/Plan (1) Renal mass Code(s): N28.89 - OTHER SPECIFIED DISORDERS OF KIDNEY AND URETER Status: Acute (2) GERD (gastroesophageal reflux disease) Code(s): K21.9 - GASTRO-ESOPHAGEAL REFLUX DISEASE WITHOUT ESOPHAGITIS Status: Chronic (3) BPH (benign prostatic hyperplasia) Code(s): N40.0 - BENIGN PROSTATIC HYPERPLASIA WITHOUT LOWER URINRY TRACT SYMP Status: Chronic (4) Hematuria Code(s): R31.9 - HEMATURIA, UNSPECIFIED Status: Resolved (5) Hypokalemia Code(s): E87.6 - HYPOKALEMIA Status: Resolved - Plan * . Hematuria resolved. No lung lesions on CT chest. Volume overload- start diuretics. Discussed with urology service. Plan is to dc 24-48 h and followup for cystoscopy as outpatient. Hydronephrosis s/p ureteric stent. Review of Systems - Medications/Allergies Allergies/Adverse Reactions: Allergies Allergy/AdvReac Type Severity Reaction Status Date / Time No Known Allergies Allergy Verified 09/12/17 05:26 Medications: Current Medications Acetaminophen (Tylenol) 650 mg PO Q4H PRN PRN Reason: Headache/Fever or Pain Stop: 09/15/17 16:35 Al Hydroxide/Mg Hydroxide (Maalox) 30 ml PO Q4H PRN PRN Reason: Indigestion Betamethasone Valerate (Valisone 0.1% Cream) 0 gm TOP DAILYPRN PRN PRN Reason: Itching Bisacodyl (Dulcolax) 10 mg [place] DAILYPRN PRN PRN Reason: Constipation Calcium Carbonate (Caltrate) 600 mg PO BID [facility] Last Admin: 09/14/17 09:20 Dose: 600 mg Chlorhexidine Gluconate (Chlorhexidine Gluconate) 15 ml SSP BID [facility] Last Admin: 09/14/17 09:36 Dose: 15 ml Cholecalciferol (Vitamin D3) 1,000 units PO DAILY [facility] Last Admin: 09/14/17 09:20 Dose: 1,000 units Docusate Sodium (Colace) 100 mg PO BID [facility] Last Admin: 09/14/17 09:20 Dose: 100 mg Finasteride (Proscar) 5 mg PO DAILY [facility] Last Admin: 09/14/17 09:21 Dose: 5 mg Furosemide (Lasix) 40 mg SLOW IVP DAILY [facility] Furosemide (Lasix) 40 mg SLOW IVP NOW [facility] Stop: 09/14/17 14:30 Haloperidol Lactate (Haldol) 5 mg IM Q8H PRN PRN Reason: Agitation Hydralazine HCl (Apresoline) 20 mg SLOW IVP Q4H PRN PRN Reason: SBP greater than 160/100 Levofloxacin 500 mg/ Device 100 mls @ 100 mls/hr IVPB 0800 [facility] Last Admin: 09/14/17 09:19 Dose: 100 mls Latanoprost (Xalatan 0.005% [facility] Soln) 1 drop EA EYE HS [facility] Last Admin: 09/13/17 21:40 Dose: 1 drop Loratadine (Claritin) 10 mg PO DAILY [facility] Last Admin: 09/14/17 09:21 Dose: 10 mg Mirabegron (Myrbetriq Er) 50 mg PO DAILY [facility] Last Admin: 09/14/17 09:21 Dose: 50 mg Ondansetron HCl (Zofran) 4 mg IVP Q6H PRN PRN Reason: Nausea/Vomiting Stop: 09/17/17 16:35 Eyelid Cleanser Comb No.7 [Ocusoft Lid Scrub Kit] 1 Pack 0 each FS HS [facility] Last Admin: 09/13/17 21:40 Dose: 1 each Menthol/Colloidal Oatmeal [Eucerin Calm Itch-Relief Treatment] 0 each TOP BIDPRN PRN PRN Reason: Itching Potassium Chloride (Klor-Con 10) 10 meq PO QAM-WM [facility] Last Admin: 09/14/17 09:20 Dose: 10 meq Prednisone (Prednisone) 10 mg PO DAILY [facility] Last Admin: 09/14/17 09:21 Dose: 10 mg Sodium Chloride (Flush - Normal Saline) 10 ml IVF Q12HR [facility] Last Admin: 09/14/17 09:22 Dose: 10 ml Sodium Chloride (Flush - Normal Saline) 10 ml IVF PRN PRN PRN Reason: Saline Flush Tamsulosin HCl (Flomax) 0.4 mg PO DAILY [facility] Last Admin: 09/14/17 09:20 Dose: 0.4 mg Trazodone HCl (Desyrel) 50 mg PO HS [facility] Last Admin: 09/13/17 21:40 Dose: 50 mg Trospium (Trospium Chloride) 20 mg PO BID [facility] Last Admin: 09/14/17 09:36 Dose: 20 mg
[2017-09-14] MEDS: cefTRIAXone\\ROCEPHIN 2 GM in Sodium Chloride 0.9% 100 ML IVPB SCH (13:34)
[2017-09-14] MEDS: Sodium Chloride 0.9% 1,000 ML IV SCH (16:19)
[2017-09-14] MEDS: Latanoprost 0.005% Ophth Soln 2.5 ml Bottle EA EYE SCH (20:00)
[2017-09-14] MEDS: traZODone HCl 50 MG TAB PO SCH (20:00)
[2017-09-14] MEDS: [UNRECOGNIZED DRUG - SUPPLY] FS SCH (20:01)
[2017-09-15] MEDS: Haloperidol Lactate 5 MG/ML VIAL IM PRN ×2 (04:47→16:12)
[2017-09-15 06:18] LABS: #Eosinphils 0.2 thou/uL (0.0-0.7); #Lymphocytes 1.2 thou/uL (1.20-3.40); #Monocytes 0.5 thou/uL (0.11-0.59); #Neutrophils 5.1 thou/uL (1.40-6.50); %Basophils 0.3 % (0.0-1.0); %Eosinophils 3.3 % (0.0-10.0); %Lymphocytes 16.8 % (21.0-51.0); %Monocytes 7.4 % (0.0-10.0); Hematocrit 29.9 % (42.0-52.0); Mean Platelet Volume 7.7 fL (7.4-10.4); Red Blood Cell (RBC) Count 3.25 mill/uL (4.70-6.10); White Blood Cell (WBC) Count 7.1 thou/uL (4.8-10.8)
[2017-09-15 06:38] LABS: Anion Gap 10 mmol/L (10-20); BUN (Urea Nitrogen) 8 mg/dL (8.4-25.7); Calc. Creatinine Clearance 79 mL/min (70-130); Calcium 8.4 mg/dL (7.8-10.44); Carbon Dioxide 25 mmol/L (23-31); Chloride 105 mmol/L (98-107); Estimated GFR-MDRD Greater than 90
[2017-09-15 07:00] LABS: Bilirubin Negative (Negative); Blood, Urine Large (Negative); Glucose, Urine (Dipstick) Negative (Negative); Ketone, Urine Negative (Negative); Nitrite Negative (Negative); Protein, Urine (Dipstick) 100 mg/dL (Neg-Trace); Urobilinogen 0.2 mg/dL (0.2-1.0)
[2017-09-15 07:24] LABS: Bacteria/HPF Rare-Few HPF (None Seen); Hyaline Casts/LPF 0-3 HYALINE CAST LPF (0-3 Hyaline); RBC/HPF 0-3 HPF (0-3); Renal Epithelial 0-3 HPF (0-3); Transitional Epithelial 0-3 HPF (0-3); Yeast-All Forms None Seen HPF (None Seen)
[2017-09-15] MEDS: Docusate 100 MG CAP PO SCH ×2 (08:31→21:36)
[2017-09-15] MEDS: Tamsulosin HCl 0.4 MG CAP PO SCH (08:31)
[2017-09-15] MEDS: predniSONE 5 MG TAB PO SCH (08:31)
[2017-09-15] MEDS: Furosemide 20 MG TAB PO SCH (08:31)
[2017-09-15] MEDS: Potassium Chloride 10 MEQ TAB PO SCH (08:31)
[2017-09-15] MEDS: Finasteride 5 MG TAB PO SCH (08:31)
[2017-09-15] MEDS: Loratadine 10 MG TAB PO SCH (08:31)
[2017-09-15] MEDS: Calcium Carbonate 600 MG TAB PO SCH ×2 (08:31→21:36)
[2017-09-15] MEDS: Chlorhexidine Gluconate 15 ML UDCUP SSP SCH ×2 (08:34→21:35)
--- NOTE | 2017-09-15 08:41 | PRG ---
DATE OF SERVICE: 09/15/2017 SUBJECTIVE: The patient is sleeping comfortably; urine output is concentrated yellow. ranjit tinged. PHYSICAL EXAMINATION: VITAL SIGNS: Stable. He is afebrile, temperature 99.5, heart rate 93, respiratory rate 16, O2 sats 93%, blood pressure 106/70. I's and O's: CBI has been held for approximately 48 hours with no significant recurrent gross hematuria of concern, I's and O's 3480 in and 2770 out. He is positive 700 mL. ABDOMEN: Soft, nontender, nondistended. GENITOURINARY: While patient is sleeping, Waters catheter was removed uneventfully. PERTINENT LABORATORY DATA: 1. Repeat UA demonstrates no significant bacteriuria. Creatinine 0.7. Hemoglobin is stable at 9.8, white count 7, platelet 135. 2. CT chest, which I ordered yesterday, for followup for possible pulmonary nodule demonstrates no nodule of concern, incidental edema, mild edema, atelectasis, pleural effusion. 3. Echocardiogram performed by Dr. Mendez demonstrates CHF with EF of 35%-40 % with diastolic dysfunction. He has been initiated on Lasix per hospitalist and Dr. Mendez. 4. Pathology, FISH cytology of urine is pending. 5. Ureteral biopsy demonstrates no obvious malignancy. IMPRESSION AND PLAN: Mr. House is a 72-year-old male with, 1. History of mental retardation, lives in a senior living, presented with gross hematuria. 2. Severe left hydroureteronephrosis, megaureter. 3. Diffuse trabeculation and diverticular formation of the bladder. 4. No significant outlet obstruction and cystoscopy except incidental mild benign prostatic hyperplasia, nonobstructing bulbar stricture. 5. Ureteroscopy/pyeloscopy demonstrating multiple ureterorenal blood clots, biopsy demonstrates no obvious malignancy. However, I cannot exclude occult malignancy as initial pyeloscopy or ureteroscopy was suboptimal 6. Solid 2.5 cm renal mass, enhancing likely small renal cell carcinoma. 7. CT demonstrating no pulmonary nodule or pleural effusion. 8. Echocardiogram consistent with diastolic dysfunction. I appreciate hospitalist's and Dr. Mendez's help. He is on low dose of Lasix and most likely will be discharged with low-dose maintenance Lasix therapy. I did remove his Waters catheter today. We will monitor for significant postvoid residual. It is my hope that he can be discharged without an indwelling Waters catheter, as I have concerns regarding traumatic Waters catheter removal due to his mental status. At times, patient is very physically combative, often trying to strike staffs. Waters catheter was removed while he was sleeping uneventfully. I will monitor bladder scan to rule out significant retention component. His megaureter is somewhat puzzling, I cannot exclude that it was due to ureteral clots versus reflux etiology. Unfortunately, patient is not a candidate for urodynamics due to his mental status capacity. I did speak with his brother yesterday in detail regarding further workup for restaging ureteroscopy/pyeloscopy, second separate issue of renal mass concerning for occult renal cell carcinoma. He will need further workup for ureteral and renal pelvic TCC. If his voided urine remains clear with no significant retention, patient can be discharged back to his facility this afternoon; however, his brother requesting patient to stay at least until tomorrow morning. I will have case management consult for disposition planning and subsequent followup and Cardiology followup as indicated. Continue Rocephin , as urine culture from [facility] demonstrates E. coli, suboptimally treated with quinolones, sensitive to cephalosporins. The patient will be discharged with cephalosporins as an outpatient. BONITA
[2017-09-15] MEDS ORDERED: Furosemide 40 MG/4 ML VIAL SLOW IVP SCH (09:00)
--- NOTE | 2017-09-15 11:31 | PDOC.PN ---
- Subjective Encounter Start Date: 09/15/17 Encounter Start Time: 11:30 Subjective: No complaint. No further hematuria. Voided a couple times since shannon -: out this AM. Most recent bladder scan >300mL per family. - Objective Resuscitation Status: Resuscitation Status DNR:Do Not Resuscitate MAR Reviewed: Yes Vital Signs & Weight: Vital Signs (12 hours) Temp Pulse Resp BP Pulse Ox 09/15/17 08:15 98.2 F 95 18 92 L 09/15/17 07:46 98.2 F 95 18 123/75 92 L 09/15/17 04:31 99.5 F 93 16 106/70 93 L Weight Weight 134 lb 11.2 oz I&O: 09/14/17 09/15/17 09/16/17 06:59 06:59 06:59 Intake Total 2500 3480 Output Total 1625 2775 Balance 875 705 Result Diagrams: 09/15/17 05:08 09/15/17 05:08 Phys Exam - Physical Examination Constitutional: NAD HEENT: moist MMs Respiratory: no wheezing, no rales, no rhonchi Cardiovascular: RRR, no significant murmur Gastrointestinal: soft, positive bowel sounds Neurological: non-focal Psychiatric: normal affect Dx/Plan (1) Renal mass Code(s): N28.89 - OTHER SPECIFIED DISORDERS OF KIDNEY AND URETER Status: Acute (2) BPH (benign prostatic hyperplasia) Code(s): N40.0 - BENIGN PROSTATIC HYPERPLASIA WITHOUT LOWER URINRY TRACT SYMP Status: Chronic (3) GERD (gastroesophageal reflux disease) Code(s): K21.9 - GASTRO-ESOPHAGEAL REFLUX DISEASE WITHOUT ESOPHAGITIS Status: Chronic (4) Hematuria Code(s): R31.9 - HEMATURIA, UNSPECIFIED Status: Resolved (5) Hypokalemia Code(s): E87.6 - HYPOKALEMIA Status: Resolved - Plan cont current plan of care, continue antibiotics switch to oral cephalosporin after today's Rocephin prepare for discharge -: home this afternoon or tomorrow morning when cleared by urology * . - Discharge Day Encounter end time: 12:00
[2017-09-15] MEDS: cefTRIAXone\\ROCEPHIN 2 GM in Sodium Chloride 0.9% 100 ML IVPB SCH (13:38)
[2017-09-15] MEDS: [UNRECOGNIZED DRUG - SUPPLY] FS SCH (21:35)
[2017-09-15] MEDS: traZODone HCl 50 MG TAB PO SCH (21:36)
[2017-09-15] MEDS: Cefdinir 300 MG CAP PO SCH (21:36)
[2017-09-15] MEDS: Latanoprost 0.005% Ophth Soln 2.5 ml Bottle EA EYE SCH (21:36)
[2017-09-16] MEDS: Haloperidol Lactate 5 MG/ML VIAL IM PRN (00:17)
[2017-09-16 06:29] LABS: #Eosinphils 0.4 thou/uL (0.0-0.7); #Lymphocytes 1.2 thou/uL (1.20-3.40); #Monocytes 0.6 thou/uL (0.11-0.59); #Neutrophils 4.7 thou/uL (1.40-6.50); %Basophils 0.3 % (0.0-1.0); %Eosinophils 5.4 % (0.0-10.0); %Lymphocytes 17.5 % (21.0-51.0); %Monocytes 8.9 % (0.0-10.0); Hematocrit 32.2 % (42.0-52.0); Mean Platelet Volume 7.8 fL (7.4-10.4); Red Blood Cell (RBC) Count 3.52 mill/uL (4.70-6.10)
[2017-09-16 07:05] LABS: Anion Gap 9 mmol/L (10-20); BUN (Urea Nitrogen) 13 mg/dL (8.4-25.7); Calc. Creatinine Clearance 65 mL/min (70-130); Carbon Dioxide 26 mmol/L (23-31); Chloride 106 mmol/L (98-107); Estimated GFR-MDRD 83
--- NOTE | 2017-09-16 07:49 | PRG ---
DATE OF SERVICE: 09/16/2017 SUBJECTIVE: Mental status stable, history mental retardation. Urinating on his own uneventfully, clear PHYSICAL EXAMINATION: VITAL SIGNS: Stable; 99.3, 102, 18, blood pressure variable from 92-99 systolic , 129 systolic, diastolic in the 60s and 70s. I's and O's 1825 in, he is incontinent PVR measure this morning x2 is 0. When patient is asked to sit on the commode, he empties complete. Previous PVR while in bed ; it is unclear if it is a true PVR as the patient has difficulty following commands, was 238, 328, most recent PVR 0 bedside commode x2. ABDOMEN: Soft, nontender, nondistended. He denies discomfort. The physical exam is somewhat limited as patient is not cooperative. LABORATORY DATA: White count 7, hemoglobin stable at 10.5, platelet 152, creatinine stable at 0.9. Repeat urine culture is negative by preliminary. [facility] urine culture demonstrates E. coli, 2 different species, sensitive to cephalosporins and resistant to quinolones. He has been on Rocephin, transitioned to Omnicef by Hospitalist for discharge. PERTINENT IMAGING: Echocardiogram demonstrates EF of 35-40% with diastolic dysfunction. CT of the chest with no pulmonary nodule. Ureteral biopsy negative for malignancy. FISH cytology of urine is pending. CT the abdomen and pelvis repeat September 13, 2017 with and without IV contrast : Significant improvement of left hydronephrosis. Exophytic left renal lesion 2.3 cm cystic dressing enhancement. Density in the left upper pole calyx precontrast filling defect may represent blood products/proteinaceous debris. Decompressed bladder with Waters. Diffuse thickening of the left ureter, urothelial thickening suggesting infection. Mild left [place]. IMPRESSION AND PLAN: 1. Mr. House is a 72-year-old male with history of mental retardation, lives in correction in [place], A is his older brother, Archie House, who I have been informing and updating patient's clinical history. He presented with gross hematuria. 2. Severe left hydroureteronephrosis, radha ureter on CT from [facility] 3. Diffuse trabeculation and small diverticular formation of the bladder with no significant outlet obstruction except incidental mild benign prostatic hypertrophy and nonobstructing bulbar stricture. 3. Ureteroscopy, pyeloscopy demonstrated multiple ureteral renal blood clots, biopsy demonstrates no obvious malignancy; however, I cannot completely exclude occult malignancy as visualization is suboptimal. 4. Solid 2.5 cm enhancing mass, likely small renal cell carcinoma. 5. Follow up CT demonstrates no pulmonary nodule. 6. Congestive heart failure, diastolic dysfunction. 7. Ecoli UTI The patient has been voiding with no significant postvoid residual which is reassuring as I prefer patient not to be discharged with indwelling Waters catheter due to his mental status and traumatic removal of catheter is high risk. Recommend the patient be discharged with Omnicef until follow up with . My plan is to repeat his ureteroscopy, pyeloscopy to further study his upper collecting system as initial evaluation was suboptimal due to significant clot debris within the collecting system. The patient's brother has been informed regarding our plan. Pending repeat ureteroscopy, pyeloscopy, I will discuss with patient and family regarding treatment of his 2.5 cm left renal mass suspicious for occult renal cell carcinoma. Regarding his voiding status, it is unclear to me why he has diffuse trabeculation, diverticula formation, with a radha ureter. Radha ureter may be a component of reflux versus noncompliant bladder. Unfortunately, the patient is not a candidate for urodynamics. As he has no significant urinary retention post-void residual, discharge without an indwelling Waters catheter with close follow up with . Appointment provided for 10/06/2017 at 2:30 p.m. The patient should arrive 30 minutes prior to appointment. manager payer to assist in coordinating followup appointment as he most likely will require ambulance transfer from [place]. I appreciate Hospitalist and Dr. Mendez's assistance. Prescription in chart Omnicef 300 mg one by mouth twice a day, continue Flomax , finasteride. Antibiotic regimen until follow-up with is advised. MTDD
[2017-09-16] MEDS: Furosemide 20 MG TAB PO SCH (08:34)
[2017-09-16] MEDS: Potassium Chloride 10 MEQ TAB PO SCH (08:34)
[2017-09-16] MEDS: Finasteride 5 MG TAB PO SCH (08:34)
[2017-09-16] MEDS: Docusate 100 MG CAP PO SCH (08:34)
[2017-09-16] MEDS: Calcium Carbonate 600 MG TAB PO SCH (08:34)
[2017-09-16] MEDS: predniSONE 5 MG TAB PO SCH (08:34)
[2017-09-16] MEDS: Loratadine 10 MG TAB PO SCH (08:34)
[2017-09-16] MEDS: Cefdinir 300 MG CAP PO SCH (08:34)
[2017-09-16] MEDS: Tamsulosin HCl 0.4 MG CAP PO SCH (08:35)
[2017-09-16 12:05] VITALS: BP 108/69; TEMP 98.6
--- NOTE | 2017-09-16 12:26 | PDOC.PN ---
- Subjective Encounter Start Date: 09/16/17 Encounter Start Time: 12:10 Subjective: No complaints. Sleeping this AM. - Objective Resuscitation Status: Resuscitation Status DNR:Do Not Resuscitate MAR Reviewed: Yes Vital Signs & Weight: Vital Signs (12 hours) Temp Pulse Resp BP Pulse Ox 09/16/17 11:30 98.6 F 94 18 108/69 92 L 09/16/17 08:34 98.2 F 96 20 94 L 09/16/17 07:35 98.2 F 96 20 120/73 94 L 09/16/17 04:39 99.3 F 102 H 18 93 L 09/16/17 00:41 98.6 F 108 H 18 99/70 95 Weight Weight 134 lb 11.2 oz I&O: 09/15/17 09/16/17 09/17/17 06:59 06:59 06:59 Intake Total 3480 1825 Output Total 2775 300 Balance 705 1525 Result Diagrams: 09/16/17 05:28 09/16/17 05:28 Phys Exam - Physical Examination Constitutional: NAD HEENT: moist MMs Respiratory: no wheezing, no rales, no rhonchi Cardiovascular: RRR, no significant murmur Gastrointestinal: soft, non-tender Neurological: non-focal Dx/Plan (1) Renal mass Code(s): N28.89 - OTHER SPECIFIED DISORDERS OF KIDNEY AND URETER Status: Acute (2) BPH (benign prostatic hyperplasia) Code(s): N40.0 - BENIGN PROSTATIC HYPERPLASIA WITHOUT LOWER URINRY TRACT SYMP Status: Chronic (3) GERD (gastroesophageal reflux disease) Code(s): K21.9 - GASTRO-ESOPHAGEAL REFLUX DISEASE WITHOUT ESOPHAGITIS Status: Chronic (4) Hematuria Code(s): R31.9 - HEMATURIA, UNSPECIFIED Status: Resolved (5) Hypokalemia Code(s): E87.6 - HYPOKALEMIA Status: Resolved (6) Congestive heart failure (CHF) Code(s): I50.9 - HEART FAILURE, UNSPECIFIED Status: Acute Qualifiers: Congestive heart failure type: combined Comment: New diagnosis, EF 35-40%, diastolic dysfunction, on low dose Lasix - Plan cont current plan of care, continue antibiotics D/C home, f/u with Urology outpatient 10/06/2017 -: F/u with cardiology about new diagnosis of CHF -: Patient's BP too low for Coreg and KIRK-I * . - Discharge Day Encounter end time: 12:46
--- NOTE | 2017-09-16 13:59 | DIS ---
PRIMARY CARE PHYSICIAN: Out of town, city call. DIAGNOSES ON ADMISSION: 1. Gross hematuria. 2. Gastroesophageal reflux disease. 3. Benign prostatic hyperplasia. 4. Mentally retarded/developmentally disabled. DISCHARGE DIAGNOSES: 1. Severe left hydroureteronephrosis, megaureter. 2. Diffuse trabeculation and small diverticular inflammation of the bladder without outlet obstructi on. 3. Solid 2.5 cm enhancing mass, likely small renal cell carcinoma. 4. New diagnosis of mixed systolic and diastolic congestive heart failure. 5. Urinary tract infection with Escherichia coli. 6. Benign prostatic hyperplasia. 7. Gastroesophageal reflux disease. PROCEDURES: 1. Retrograde pyelogram showed a partial opacification of the left collecting structure with mild di latation of the visualized ureter and upper collecting structures, wire and catheter placed into the upper collecting structures and a ureteral stent was placed. 2. Chest x-ray showing an indeterminate nodular density in left mid lung, otherwise no abnormalities . 3. CT of the chest showing no definitive pulmonary nodule, just some atelectasis of the lingula of t he left lower lobe and mild edema, small to moderate sized pleural effusions and some impressive atel ectasis in both lung bases. 4. CT of the abdomen and pelvis showing exophytic left renal lesion with some density measures sugge sting enhancement, a solid lesion and a left ureteral stent with a decompressed bladder and perivesic ular fat stranding, diffuse thickening of the left ureter with urothelial thickening and enhancement of the left renal collecting system and mild left hydronephrosis. 5. Echocardiogram showing ejection fraction of 35-40% and diastolic dysfunction. 6. Cystoscopy, left retrograde with a 20 [place] 3-way Waters catheter, left ureteroscopy, pyeloscopy, proximal ureteral biopsy and double-J ureteral stent placement. CONSULTATIONS: 1. Urology, Dr. Bernal. 2. Cardiology, Dr. Mendez. PERTINENT LABORATORY DATA: Hemoglobin stable at 10.5. Urine culture here with no growth. E. coli w as from an outside facility culture. SUMMARY OF HOSPITAL COURSE: This is a 72-year-old male with history of mental retardation, living in a [place] [facility], who developed brayden hematuria and he was brought into the emergency room, was otherwis e asymptomatic. Dr. Bernal was consulted with Urology and the above procedures and investigatio ns were performed. Dr. Mendez was also consulted in case of need for cardiac clearance for procedu res. Echocardiogram was done and revealed a new diagnosis of systolic and diastolic congestive heart failure with some evidence of exacerbation with fluid on his CT scan. He was diuresed well without any problems. The patient had a renal mass diagnosed as likely renal cell carcinoma, but small, biop sy was nondiagnostic. The patient also had evidence of a previous hydronephrosis on the left with me anitraureter on CT from [facility] and [facility] in [place] that looked mild here. Dr. Bernal did determine that he was unable to do urodynamics to his mental retardation, but did try him off of a Waters and he was voiding well without residual by the day of discharge. The patient's hematuria did resolve duri ng hospitalization and he had no further bleeding at the time of discharge. He is being discharged [facility] with follow up with Dr. Bernal as an outpatient. DISCHARGE MANAGEMENT: Discharged back to [facility]. Follow up with Dr. Bernal on 10/06/2017 a t 2:30 p.m., he needs to arrive 30 minutes early. He also needs to follow up with Dr. Mendez in th e next 3-4 weeks about his congestive heart failure. ACTIVITIES: As tolerated. DIET: Fluid restricted healthy heart, low sodium diet. DISCHARGE MEDICATIONS: 1. Eucerin cream as needed. 2. Triamcinolone cream as needed. 3. Chlorhexidine gluconate oral rinse twice a day. 4. Latanoprost 1drop in each eye at night. 5. Occu-Soft lid scrub one pack at night for eyelid cleaning. 6. Trazodone 50 mg at night. 7. Calcium carbonate 600 mg twice a day. 8. Prednisone 10 mg daily. 9. Potassium chloride 10 mEq daily. 10. Vitamin D 1000 units daily. 11. Claritin 10 mg daily. 12. Flomax 0.4 mg daily, 30 tablets dispensed. 13. Lasix 20 mg daily, 30 tablets dispensed. 14. Proscar 5 mg daily, 30 tablets dispensed. 15. Colace 100 mg twice a day, 60 tablets dispensed. 16. Omnicef 300 mg twice a day, 42 tablets dispensed. He needs to continue on this until followed u p with Urology. The patient was not able to be started on beta-blockers or KIRK inhibitors due to his very low blood p ressure during this hospitalization.
[2017-09-16] MEDS: Chlorhexidine Gluconate 15 ML UDCUP SSP SCH (15:23)
== END 2017-09-16 15:26 | disposition home or self-care (01) | DRG 693 ==
LOC: ERS 01:11 → 2NO 03:12 → SURG B 12:12
PROVIDERS: ADMIT Internal Medicine; ATTEND Internal Medicine
PROC: 0TB78ZX Excision of Left Ureter, Via Natural or Artificial Opening Endoscopic, Diagnostic (ICD-10-PCS; principal; 2017-09-12)
PROC: 0T778DZ Dilation of Left Ureter with Intraluminal Device, Via Natural or Artificial Opening Endoscopic (ICD-10-PCS; 2017-09-12)
PROC: BT1FZZZ Fluoroscopy of Left Kidney, Ureter and Bladder (ICD-10-PCS; 2017-09-12)
DX: N13.30 Unspecified hydronephrosis (principal); I50.43 Acute on chronic combined systolic (congestive) and diastolic (congestive) heart failure; N39.0 Urinary tract infection, site not specified; C64.9 Malignant neoplasm of unspecified kidney, except renal pelvis; N32.89 Other specified disorders of bladder; B96.20 Unspecified Escherichia coli [E. coli] as the cause of diseases classified elsewhere; Z66 Do not resuscitate; R31.0 Gross hematuria; F79 Unspecified intellectual disabilities; K21.9 Gastro-esophageal reflux disease without esophagitis; N40.0 Benign prostatic hyperplasia without lower urinary tract symptoms; N28.82 Megaloureter; N28.89 Other specified disorders of kidney and ureter; R62.50 Unspecified lack of expected normal physiological development in childhood; E87.6 Hypokalemia
CPT/HCPCS: 36415; 36416; 71010; 71250; 74178; 74420; 80048; 80053; 81003; 81015; 85025; 86850; 86900; 86901; 87086; 88121; 88304; 93005; 93306; C1758; C1769; J0696; J1630; J1940; J1956; J2001; J2250; J2405; J2704; J3010; J7050; Q9961

== ENCOUNTER 2017-10-06 15:32 | Outpatient (CLI) | payer MEDICARE, MEDICAID ==
[2017-10-06 18:30] LABS: Chloride 111 mmol/L (98-107); Potassium 5.5 mmol/L (3.5-5.1); Sodium 138 mmol/L (136-145)
[2017-10-06 18:31] LABS: Calcium 9.2 mg/dL (7.8-10.44)
[2017-10-06 18:33] LABS: Anion Gap 19 mmol/L (10-20); Carbon Dioxide 14 mmol/L (23-31)
[2017-10-06 18:48] LABS: BUN (Urea Nitrogen) 26 mg/dL (8.4-25.7); Calc. Creatinine Clearance 0 mL/min (70-130); Estimated GFR-MDRD 57; Glucose 137 mg/dL (83-110)
== END 2017-10-06 15:33 | disposition home or self-care (01) ==
LOC: LABBT 15:32
PROVIDERS: ATTEND Urology
DX: Z01.818 Encounter for other preprocedural examination (principal); N13.30 Unspecified hydronephrosis
CPT/HCPCS: 80048; 81001; 87086; 93005; 93010

== ENCOUNTER 2017-10-11 06:11 | Day surgery (SDC) | payer MEDICARE, MEDICAID ==
[2017-10-06 15:58] VITALS: BMI 24.3
[2017-10-11 06:55] LABS: INR-International Normal Ratio 1.1; PTT 30.2 SEC (22.9-36.1); Potassium 4.1 mmol/L (3.5-5.1); Prothrombin Time 13.8 SEC (12.0-14.7)
[2017-10-11] MEDS ORDERED: Iothalamate Meglumine 60% 50 ML VIAL FS ONE (07:15)
[2017-10-11] MEDS ORDERED: Piperacillin/Tazobactam 3.375 GM in Sodium Chloride 0.9% 100 ML IVPB SCH (07:30)
[2017-10-11] MEDS ORDERED: HYDROmorphone 0.5 MG/0.5 ML SYRINGE ONE (08:21)
[2017-10-11] MEDS ORDERED: Fentanyl 100 MCG/2 ML VIAL ONE (08:21)
[2017-10-11] MEDS ORDERED: Midazolam HCl 2 mg/2 ml Vial ONE (08:25)
--- NOTE | 2017-10-11 10:02 | RAD ---
RETROGRADE URETEROGRAM INTRAOPERATIVE FLUOROSCOPY: HISTORY: Urinary tract obstruction. FINDINGS: Intraoperative fluoroscopy was provided for retrograde study as performed by Dr. Bernal. Multip le spot fluoroscopic images show contrast opacification of a dilated left renal collecting system. F inal image shows double-pigtail stent over the left ureter in good radiographic position. POS: [facility]
--- NOTE | 2017-10-11 10:18 | OP ---
PREOPERATIVE DIAGNOSES: 1. A 72-year-old male with history of gross hematuria, previous cytology negative. 2. History of severe left hydroureteronephrosis with megaureter. 3. History of left exophytic 2.5 cm solid appearing mass lower pole of the left kidney. 4. Possible left upper pole caliceal mass versus stone versus clot debris. 5. Nonobstructing bulbar stricture 16-18 Singaporean caliber, stable. 6. Previous cystoscopy demonstrating diffuse cellulae, early diverticular formation, bilateral Hutch diverticulum with no previous evidence of gross bladder mass or stone, or outlet obstruction POSTOPERATIVE DIAGNOSES: 1. A 72-year-old male with history of gross hematuria, previous cytology negative. 2. History of severe left hydroureteronephrosis with megaureter. 3. History of left exophytic 2.5 cm solid appearing mass lower pole of the left kidney. 4. Possible left upper pole caliceal mass versus stone versus clot debris. 5. Nonobstructing bulbar stricture 16-18 Singaporean caliber, stable. 6. Previous cystoscopy demonstrating diffuse cellulae, early diverticular formation, bilateral Hutch diverticulum with no previous evidence of gross bladder mass or stone, or outlet obstruction PROCEDURE: Cystoscopy, left retrograde, 6 x 30 double-J ureteral stent exchange with distal tail in situ, flexible ureteroscopy, pyeloscopy staging. SURGEON: Tena Bernal D.O. ANESTHESIA: General. COMPLICATIONS: None apparent. SPECIMEN: None. ESTIMATED BLOOD LOSS: None. INTRAOPERATIVE FINDINGS: 1. Stable nonobstructing bulbar stricture 16-18 Singaporean caliber. 2. Mild BPH component coapting, with no gross evidence of outlet obstruction. 3. Diffuse cellulae, diffuse small diverticula formation, bilateral Hutch diverticulum with no evidence of bladder mass. 4. Left ureteroscopy and pyeloscopy demonstrates no further clot debris, no evidence of ureteral/ caliceal mass. 5. Chronically dilated left calyceal moiety. INDICATIONS FOR PROCEDURE AND HISTORY: Mr. House is a 72-year-old male, with developmental delay, who was initially transferred from [facility] emergency room in August. I first saw the patient in the emergency room on , as he had gross hematuria. Patient normal voiding status includes voiding in diaper, at times in the urinal. The patient is unable to cooperate for true postvoid residual. I did observe the patient for voiding parameters while inhouse. He is unable to fully cooperate for true postvoid residual, however, we assessed him thoroughly regarding his voiding status. If he is asked to prompted voiding with standing, he has no significant postvoid residual. Initial CT demonstrated severe left hydroureteronephrosis with megaureter extending down to the level of UVJ. The bladder itself was difficult to evaluate due to streak defect from a hip replacement. Incidentally noted is a 2.5 cm left lower pole renal mass with likely enhancement which is to be staged with further renal mass protocol at a later date. He underwent cystoscopy, previously demonstrating multiple clot debris within the ureter and collecting system. There was poor visualization and clot debris was evacuated with a biopsy forceps and ureteral biopsy and the mid proximal ureter is negative for malignancy. He subsequently had clear urine output. He presents today for restaging ureteroscopy staging. Repeat CT demonstrates significant resolution of hydronephrosis, stent in place. There is some sort of filling defect in the left upper pole. Differential diagnosis of clot debris, stone, possibility of mass was discussed with the patient's family in detail and advised regarding restaging ureteroscopy. Ureteroscopic assessment was suboptimal on initial assessment due to significant hematuria, clot debris. Risks and complications including, but not limited to, bleeding, pain, infection, sepsis, injury to adjacent organs, ureteral and renal injury was reviewed with him/POA in detail. DESCRIPTION OF THE PROCEDURE: After an informed consent is signed, the patient is taken to the operating room, placed in a dorsal lithotomy position. Prior to taking the patient back, due to his mental capacity, he required ketamine induction, once he was sedated enough, then a general anesthesia was formally performed by Anesthesia. Broad-spectrum antibiotics were provided. Bilateral KIRK hose and SCDs were subsequently placed. A 21-Singaporean cystoscope was utilized for cystoscopy again demonstrating stable bulbar 16-18 Singaporean nonobstructing caliber stricture. I was able to pass the scope without any issues. The prostatic urethra demonstrated no significant obstructive component. There are coapting lateral lobes, no evidence of bladder neck obstruction is noted. Upon entering the bladder, there is some sedimentary debris consistent with chronic indwelling ureteral stent. Again noted is diffuse cellulae formation early diverticular formation. There were punctate sedimentary stone debris which I removed and then there were few 1-2 stones in caliber, which was removed with grasping forceps. At this time, the previously placed ureteral stent was removed to the level of the meatus. There was some encrustation of the proximal coil. Therefore, I did utilize a 0.35 Super Stiff wire and subsequently was able to pass a wire through the stent into the left upper pole. A 10 Singaporean dual-lumen access sheath was then passed to the level of the mid ureter and retrograde pyelogram performed which demonstrated again as previously noted, chronically dilated collecting system and the wires were confirmed to be in the proper place. With one safety wire and one working wire secured, a 13/15 Singaporean x 46 cm navigator was able to be passed without any issues as he has a history of megaureter. The navigator was placed to the level of the proximal ureter just distal to the UPJ and a flexible ureteroscope was passed under direct visualization. The working wire was subsequently removed. Surveillance of the collecting system demonstrated some mild sedimentary debris; however, I did not see any source of active bleeding, calyceal /ureteral /renal pelvic mass concerning for malignancy. We performed a retrograde pyelogram through the scope in which I was able to stage his collecting system thoroughly and I did not see any nidus concerning for mass , tumor, or stone. We surveyed the ureter, which demonstrated some irritative changes consistent with chronic ureteral stent. However, no papillary ureteral lesions were seen. The scope was negotiated distally while surveying the ureter in its entirety. The navigator was then subsequently removed. A 6 x 30 double-J ureteral stent was passed without difficulty with proper placement confirmed on fluoroscopy. At the end of the procedure, I was able to pass an 18 Singaporean Waters catheter in and out without any issues. This was subsequently removed after bladder was emptied. He will be discharged with Omnicef to be continued for 10 more days until followup appointment. I will arrange for my office for patient to obtain repeat CT hematuria protocol/ CT renal mass protocol to further delineate his renal mass. Patient's brother relates that given patient's mental capacity, would desired conservative approach for his future diagnosis, workup and progress. He will follow up next week at [address] to be arranged prior to appointment. BONITA
== END 2017-10-11 12:55 | disposition home or self-care (01) ==
LOC: SDC 06:11
PROVIDERS: ATTEND Urology
PROC: 0T778DZ Dilation of Left Ureter with Intraluminal Device, Via Natural or Artificial Opening Endoscopic (ICD-10-PCS; principal; 2017-10-11)
DX: N13.39 Other hydronephrosis (principal); N28.82 Megaloureter; N28.89 Other specified disorders of kidney and ureter; R31.0 Gross hematuria; I50.32 Chronic diastolic (congestive) heart failure; K21.9 Gastro-esophageal reflux disease without esophagitis; F81.9 Developmental disorder of scholastic skills, unspecified; Z90.49 Acquired absence of other specified parts of digestive tract; Z96.643 Presence of artificial hip joint, bilateral; Z87.440 Personal history of urinary (tract) infections
CPT/HCPCS: 52332; 74420; 84132; 85610; 85730; C1769; 36415; J0131; J1170; J2250; J2543; J3010; J7050; Q9961

== ENCOUNTER 2017-10-22 10:05 | Outpatient (CLI) | payer MEDICARE, MEDICAID ==
--- NOTE | 2017-10-22 13:12 | CT ---
CT OF THE ABDOMEN AND PELVIS WITH AND WITHOUT IV CONTRAST: INDICATION: History of gross hematuria and renal mass. TECHNIQUE: Multiple CT images were obtained of the abdomen and pelvis with and without IV contrast utilizing a u rogram protocol. The patient has special needs and is combative during the examination. The patient was not able to hold still and follow commands during the CT evaluation. Motion artifact limits gilles ge detail. FINDINGS: There is worsening moderate to severe left hydronephrosis. Left ureteral stent is again seen in plac e. There is moderate distention in the bladder with moderate wall thickening. The solid left renal lesion involving the posterior aspect of the inferior pole of the left kidney is stable measuring 2.5 cm. The hypodense lesion involving the superior pole of the right kidney is also stable in size measuring 1.9 cm and demonstrates some mild enhancement which may be related to small enhancing internal septa . The small exophytic lesion is seen off the anterior aspect superior pole of the right kidney measu ring less than 1 cm in size difficult to fully characterize due to its size. There is bibasilar atelectasis. The gallbladder is surgically absent. Pancreas and adrenal glands are within normal limits. The spl een is unremarkable. Waters catheter has been removed. There is stable postsurgical change involving both hips. There is diffuse osteopenia. No definite cute osseous abnormality is evident. IMPRESSION: 1. Stable solid renal lesion involving the posterior inferior aspect of the left kidney. 2. Development of severe hydronephrosis involving the left kidney with stable placement of the left ureteral stent. There is moderate distention of the bladder. A component of bladder outlet obstruct ion cannot be entirely excluded. The distal ureteral stent does project into the region of the super ior aspect of the prostate. This may be obstructing the prostatic urethra. 3. Enhancing hypodense lesion involving the superior pole of the superior pole of the right kidney i s stable in size measuring 1.9 cm. Some of the perceived enhancement may be related to small interna l septations. Continued followup is recommended. 4. No gross urothelial lesion is evident. There is a small amount of contrast seen layering along t he posterior aspect laterally on the delayed phase images. 5. Persistent small hypodensities involving the right kidney likely related to small cysts. 6. Limitation of the exam due to motion artifact and patient cooperation. POS: [facility]
== END 2017-10-22 10:06 | disposition home or self-care (01) ==
LOC: CT 10:05
PROVIDERS: ATTEND Urology
DX: R31.0 Gross hematuria (principal); N28.89 Other specified disorders of kidney and ureter; N13.30 Unspecified hydronephrosis; N32.89 Other specified disorders of bladder; Z96.0 Presence of urogenital implants
CPT/HCPCS: 74178

== ENCOUNTER 2017-10-27 06:21 | Day surgery (SDC) | payer MEDICARE, MEDICAID ==
[2017-10-27] MEDS ORDERED: cefTRIAXone\\ROCEPHIN 2 GM in Sodium Chloride 0.9% 100 ML IVPB SCH (08:45)
[2017-10-27 09:58] LABS: Hemoglobin 14.2 g/dL (14.0-18.0); Mean Corpuscular HGB CONC 32.3 g/dL (32.0-36.0); Mean Corpuscular Hemoglobin 30.4 pg (27.0-31.0); Mean Corpuscular Volume 94.2 fl (80.0-94.0); Mean Platelet Volume 8.9 fL (7.4-10.4); Platelet Count 113 thou/uL (130-400); RBC Distribution Width 14.9 % (11.5-14.5); Red Blood Cell (RBC) Count 4.67 mill/uL (4.70-6.10); White Blood Cell (WBC) Count 9.2 thou/uL (4.8-10.8)
[2017-10-27 10:07] LABS: INR-International Normal Ratio 1.2; PTT 23.8 SEC (22.9-36.1); Prothrombin Time 14.9 SEC (12.0-14.7)
[2017-10-27] MEDS ORDERED: Levofloxacin 500 mg/D5W 100 ml Premix Bag ONE (10:10)
[2017-10-27 10:16] LABS: Anion Gap 13 mmol/L (10-20); BUN (Urea Nitrogen) 22 mg/dL (8.4-25.7); Calc. Creatinine Clearance 0 mL/min (70-130); Calcium 9.2 mg/dL (7.8-10.44); Carbon Dioxide 20 mmol/L (23-31); Chloride 108 mmol/L (98-107); Estimated GFR-MDRD 89; Glucose 120 mg/dL (83-110); Potassium 4.2 mmol/L (3.5-5.1); Sodium 137 mmol/L (136-145)
[2017-10-27] MEDS ORDERED: Midazolam HCl 2 mg/2 ml Vial ONE (10:59)
--- NOTE | 2017-10-27 12:23 | OP ---
DATE OF PROCEDURE: 10/27/2017 PREOPERATIVE DIAGNOSES: 1. A 72-year-old male with developmental delay, presented with left hydronephrosis, gross hematuria, status post left ureteroscopy, stent placement , pyeloscopy, ureteral biopsy. 2. Left ureteroscopy, pyeloscopy, workup negative for occult ureteral transitional cell carcinoma. 3. History of chronic left megaureter, nonobstructing. 4. Incidental left 2.3 cm exophytic renal cyst enhancing, differential diagnosis of occult renal cell carcinoma. 5. Diastolic congestive heart failure, ejection fraction of 35%-40%. 6. 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 7. Occult bulbar stricture, nonobstructing. POSTOPERATIVE DIAGNOSES: 1. A 72-year-old male with developmental delay, presented with left hydronephrosis, gross hematuria, status post left ureteroscopy, stent placement , pyeloscopy, ureteral biopsy. 2. Left ureteroscopy, pyeloscopy, workup negative for occult ureteral transitional cell carcinoma. 3. History of chronic left megaureter, nonobstructing. 4. Incidental left 2.3 cm exophytic renal cyst enhancing, differential diagnosis of occult renal cell carcinoma. 5. Diastolic congestive heart failure, ejection fraction of 35%-40%. 6. 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 7. Occult bulbar stricture, nonobstructing. PROCEDURE: Cystoscopy, left stent pull under anesthesia due to patient's mental capacity. SURGEON: Tena Bernal D.O. ANESTHESIA: Sedation. DISPOSITION: To the recovery room in stable condition. INDICATIONS FOR THE PROCEDURE AND HISTORY: Mr. House is a 72-year-old male with significant mental retardation, has been living in a care home. His next of kin is his older brother, who has provided decision for his medical care. He presents today for left stent pull under anesthesia, as patient is unable to tolerate even physical exam, as he is combative. Regarding his incidental left renal mass, brother desired clinical observation. He does not desire his brother to proceed with further surgical intervention. Therefore, will be on surveillance and watchful waiting. He presents today for cysto, stent pull under local. DESCRIPTION OF THE PROCEDURE: After an informed consent is signed, the patient is taken to the operating room, placed in a dorsal lithotomy position with the genital area prepped and draped in the usual surgical sterile fashion. Broad- spectrum antibiotics with Levaquin and Rocephin provided. A 21-Azeri cystoscope was utilized for cystoscopy. The scope was passed without difficulty. He has an incidental bulbar stricture as above, which was nonobstructing. The prostatic urethra without evidence of obstructive component. Bladder was entered. There was evidence of sediment noted. This was irrigated. The ureteral stent was then removed after bladder irrigated. The patient tolerated the procedure well and transported to the recovery room in stable condition. He will follow up with me in 2 weeks. He is to present with his brother, Archie, regarding disposition regarding watchful waiting versus surveillance regarding his left exophytic renal mass. Regarding his left megaureter, it is nonobstructing. I will continue his Omnicef 300 mg 1 p.o. b.i.d. until followup appointment. We will consider prophylactic daily antibiotic therapy. MTDD
[2017-10-27] MEDS ORDERED: Propofol 200 MG/20 ML VIAL ONE (14:58)
[2017-10-27] MEDS ORDERED: Glycopyrrolate 0.2 MG/ML 5 ML SYRINGE ONE (14:58)
== END 2017-10-27 13:35 | disposition home or self-care (01) ==
LOC: SDC 06:21
PROVIDERS: ATTEND Urology
PROC: 0TP98DZ Removal of Intraluminal Device from Ureter, Via Natural or Artificial Opening Endoscopic (ICD-10-PCS; principal; 2017-10-27)
DX: R31.0 Gross hematuria (principal); N13.39 Other hydronephrosis; N28.1 Cyst of kidney, acquired; N32.3 Diverticulum of bladder; N35.9 Urethral stricture, unspecified; I50.32 Chronic diastolic (congestive) heart failure; F78 Other intellectual disabilities; K21.9 Gastro-esophageal reflux disease without esophagitis; Q62.2 Congenital megaureter; N40.0 Benign prostatic hyperplasia without lower urinary tract symptoms; Z90.49 Acquired absence of other specified parts of digestive tract; Z98.890 Other specified postprocedural states; Z79.899 Other long term (current) drug therapy; Z79.52 Long term (current) use of systemic steroids; Z96.643 Presence of artificial hip joint, bilateral
CPT/HCPCS: 36415; 80048; 85027; 85610; 85730; J0696; J1956; J2250; J2704; J7050